=== PATIENT | female | born 1975 | race Hispanic/Latino ===

== ENCOUNTER 2018-11-26 07:13 | Emergency (ER) | payer SELFPAY ==
[2018-11-26] MEDS ORDERED: Adacel (T-DAP) 0.5 ML SYRINGE ONE (07:25)
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
[2018-11-26 07:58] LABS: #Eosinphils 0.7 thou/uL (0.0-0.7); #Lymphocytes 1.9 thou/uL (1.20-3.40); #Monocytes 0.4 thou/uL (0.11-0.59); %Basophils 0.7 % (0.0-1.0); %Eosinophils 12.2 % (0.0-10.0); %Lymphocytes 31.9 % (21.0-51.0); %Neutrophils 49.2 % (42.0-75.0); Hemoglobin 12.2 g/dL (12.0-16.0); Mean Corpuscular HGB CONC 33.6 g/dL (32.0-36.0); Mean Corpuscular Hemoglobin 30.3 pg (27.0-31.0); Mean Corpuscular Volume 90.3 fL (78.0-98.0); Mean Platelet Volume 6.6 fL (7.4-10.4); Platelet Count 388 thou/uL (130-400); RBC Distribution Width 11.9 % (11.5-14.5); Red Blood Cell (RBC) Count 4.03 mill/uL (4.20-5.40)
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
[2018-11-26 08:04] LABS: BHCG - Serum Negative (NEGATIVE); Pregs Control Background? CLEAR/WHITE (CLR/WHITE); Pregs Control Bar Appear? YES (CONTROL BAR)
[2018-11-26 08:15] LABS: ALT (SGPT) 21 U/L (8-55); AST (SGOT) 23 U/L (5-34); Albumin 3.7 g/dL (3.5-5.0); Alkaline Phosphatase 93 U/L (40-150); Anion Gap 11 mmol/L (10-20); BUN (Urea Nitrogen) 12 mg/dL (7.0-18.7); Bilirubin, Total 0.3 mg/dL (0.2-1.2); Calc. Creatinine Clearance 0 mL/min (70-130); Calcium 8.8 mg/dL (7.8-10.44); Carbon Dioxide 21 mmol/L (22-29); Chloride 107 mmol/L (98-107); Estimated GFR-MDRD 64; Globulin 3.1 g/dL (2.4-3.5); Glucose 107 mg/dL (70-105); Lipase 19 U/L (8-78); Potassium 3.3 mmol/L (3.5-5.1); Protein, Total 6.8 g/dL (6.0-8.3); Sodium 136 mmol/L (136-145)
[2018-11-26 09:28] LABS: Bilirubin Negative (Negative); Blood, Urine Negative (Negative); Clarity CLEAR (Clear); Glucose, Urine (Dipstick) Negative (Negative); Leukocyte Negative (Negative); Nitrite Negative (Negative); Protein, Urine (Dipstick) Negative (Neg-Trace); Urobilinogen 0.2 mg/dL (0.2-1.0); pH, Urine 6.5 (5.0-9.0)
[2018-11-26 09:32] LABS: Specific Gravity, Urine 1.045 (1.002-1.036)
[2018-11-26] MEDS ORDERED: ISOVUE-370 76%-LOCM 1 ML ONE (10:32)
== END 2018-11-26 09:35 | disposition home or self-care (01) ==
LOC: ERS 07:13
DX: S01.81XA Laceration without foreign body of other part of head, initial encounter (principal); S61.511A Laceration without foreign body of right wrist, initial encounter; S30.1XXA Contusion of abdominal wall, initial encounter; V69.49XA Driver of heavy transport vehicle injured in collision with other motor vehicles in traffic accident, initial encounter
CPT/HCPCS: 12011; 70450; 71045; 71260; 72125; 74177; 80053; 81003; 83690; 84703; 85025; 90471; 90715; 96360; 96361; G0390; Q9966